=== PATIENT | male | born 1950 | race Caucasian/White ===

== ENCOUNTER 2017-11-25 16:23 | Emergency (ER) | payer MEDICARE ==
[~2017-11-25] VITALS: Ht 180.3 cm; Wt 117.0 kg
[2017-11-25 16:28] VITALS: BP 203/124; PULSE 91; RESP 16; TEMP 98.5; O2SAT 96
[2017-11-25] MEDS ORDERED: HYDR25TA5 PO (16:52)
--- NOTE | 2017-11-25 16:52 | PD ---
HPI Chief Complaint: Hypertension Time Seen by Provider: 16:34 Travel History International Travel<30 days: No Contact w/Intl Traveler<30days: No Traveled to known affect area: No History of Present Illness HPI This is a 67-year-old male who presents here complaining of elevated blood pressure. Patient has never been diagnosed with elevated blood pressure and have not seen a primary care physician in the last few years. Patient denies any chest pain or shortness of breath there is no headache there is no motor or sensory loss or slurred speech. Patient denies any leg swelling, no abdominal pain, nausea or vomiting or diarrhea. PFSH Social History Tobacco Use: No Allergies-Medications (Allergen,Severity, Reaction): Coded Allergies: No Known Allergies (Unverified , 11/25/17) Reported Meds & Prescriptions Reported Meds & Active Scripts Active Hydrochlorothiazide 25 Mg Tab 25 Mg PO DAILY Review of Systems Except as stated in HPI: all other systems reviewed are Neg Physical Exam Narrative GENERAL: Well-nourished, well-developed patient. SKIN: Focused skin assessment warm/dry. HEAD: Normocephalic. EYES: No scleral icterus. No injection or drainage. NECK: Supple, trachea midline. No JVD or lymphadenopathy. CARDIOVASCULAR: Systolic murmur best heard in the third intercostal space, no gallops, or rubs. RESPIRATORY: Breath sounds equal bilaterally. No accessory muscle use. GASTROINTESTINAL: Abdomen soft, non-tender, nondistended. MUSCULOSKELETAL: No cyanosis, or edema. BACK: Nontender without obvious deformity. No CVA tenderness. Data Data Last Documented VS Vital Signs Date Time Temp Pulse Resp B/P (MAP) Pulse Ox O2 Delivery O2 Flow Rate FiO2 11/25/17 16:49 Room Air 11/25/17 16:28 98.5 91 16 203/124 (150) 96 Orders Orders Ed Discharge Order (11/25/17 16:52) MDM Medical Decision Making Medical Screen Exam Complete: Yes Emergency Medical Condition: Yes Differential Diagnosis Hypertension. Narrative Course This is a 67-year-old male presents here complaining of vivid blood pressure. Patient has no primary care physician and not seen a physician for the last 5 years. Blood pressure in the ER was 150s over 90s. Patient has no symptoms and physical exam is unremarkable except for a systolic murmur that I told the patient needs to be followed up with an echo as an outpatient. Patient understands the plan of care and will set up a prescription for the hypertension medications. Diagnosis Primary Impression: HTN (hypertension) Qualified Codes: I10 - Essential (primary) hypertension Scripts Hydrochlorothiazide (Hydrochlorothiazide) 25 Mg Tab 25 MG PO DAILY, #30 TAB 0 Refills Prov: Jamal Ruiz MD 11/25/17 Disposition: 01 DISCHARGE HOME Condition: Stable Jamal Ruiz MD Nov 25, 2017 16:52
== END 2017-11-25 17:14 | disposition home or self-care (01) ==
LOC: PHED 16:23
DX: I10 Essential (primary) hypertension (principal)
CPT/HCPCS: 99283